=== PATIENT | female | born 1945 | race Caucasian/White ===

== ENCOUNTER 2018-11-08 14:13 | Inpatient (IN) | payer OTHER ==
[~2018-11-08] VITALS: Ht 157.5 cm; Wt 60.8 kg
[2018-11-08] VITALS (13 sets, daily range): BP systolic 118–181; BP diastolic 56–94
[~2018-11-08 14:13] MED LIST: ASA81BEC PO; CALCIUM 600 +1 EAC1 PO; FISH OIL 1,001000 M1 PO; GEMFIBROZIL 60600 MG PO; JINTELI 1 MG-51 EACH; RED YEAST RICE600 M1 PO; ULTRAM 50MG TAB50 MG PO; VITAMIN E400 UNI6 PO
[2018-11-08 14:41] LABS: URINE BILIRUBIN NEGATIVE (Negative); URINE BLOOD TRACE (Negative); URINE CLARITY CLEAR; URINE COLOR YELLOW; URINE GLUCOSE-RANDOM* NEGATIVE (Negative); URINE KETONES TRACE (Negative); URINE LEUKOCYTES NEGATIVE (Negative); URINE NITRITE NEGATIVE (Negative); URINE PROTEIN (DIPSTICK) NEGATIVE (Negative); URINE SPECIFIC GRAVITY 1.015 (1.005-1.035); URINE UROBILINOGEN 0.2 E.U./dl (0.2-1.0)
[2018-11-08 14:54] LABS: ABSOLUTE NEUTROPHILS 5.1 thou/uL (1.4-8.2); BASOPHILS 0.4 % (0.0-2.0); EOSINOPHILS 0.9 % (0.0-3.0); HEMATOCRIT 41.5 % (37.0-47.0); LYMPHOCYTES 14.4 % (24.0-44.0); MCH 30.3 pg (26.0-34.0); MCHC 33.7 g/dL (28.0-37.0); MCV 89.7 fL (80.0-100.0); MONOCYTES 5.2 % (1.0-8.0); PLATELET COUNT 261 thou/uL (150-400); POLYS 79.1 % (36.0-66.0); RBC 4.63 mil/uL (4.20-5.00); RDW 13.2 % (10.5-14.5); WBC 6.4 thou/uL (4.0-11.0)
[2018-11-08 15:06] LABS: CALCIUM 8.8 mg/dL (8.5-10.1); CREATININE 0.7 mg/dL (0.6-1.0); POTASSIUM 3.8 mmol/L (3.5-5.1)
[2018-11-08 15:12] LABS: ALBUMIN 4.2 g/dL (3.4-5.0); TOTAL PROTEIN 7.9 g/dL (6.4-8.2)
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
--- NOTE | 2018-11-08 17:50 | NUR ---
PT ORIOENTED TO ROOM AND UNIT. BED LOW AND LOCKED, SIDE RAILS UPX 3, CALL LIGHT IN REACH. TELE APPLIED. WILL CONTINUE TO ASSESS.
[2018-11-08 22:40] LABS: HEMATOCRIT 36.4 % (37.0-47.0); HEMOGLOBIN 12.3 gm/dL (12.0-15.0)
[2018-11-09] VITALS (12 sets, daily range): BP systolic 123–152; BP diastolic 48–66
--- NOTE | 2018-11-09 04:13 | NUR ---
PATIENT ADMITTED FROM ED DEPARTMENT, ALERT AND ORIENTED X4, PAIN TO ABDOMINAL MILDLY CONTROLLED WITH MEDICATION. ON ROOM AIR. UP WITH STANDBY ASSISTANCE. H&H LABWORK MONITORED CLOSELSY. SINUS RHYTHM ON CLAIMS REPRESENTATIVE. SPOKE WITH DR. LIM ABOUT PATIENT'S PLAN OF CARE. PLAN OF CARE DISCUSSED WITH PATIENT, VERBALIZED UNDERSTANDING. NO SIGNS OF ACUTE DISTRESS NOTED AT THIS TIME. WILL CONTINUE TO MONITOR.
[2018-11-09 05:25] LABS: ALBUMIN 3.4 g/dL (3.4-5.0); CALCIUM 8.6 mg/dL (8.5-10.1); CREATININE 0.6 mg/dL (0.6-1.0); MAGNESIUM 1.8 mg/dL (1.8-2.4); PHOSPHORUS 3.2 mg/dL (2.5-4.9); POTASSIUM 3.9 mmol/L (3.5-5.1)
[2018-11-09 05:44] LABS: HEMATOCRIT 36.3 % (37.0-47.0); MCH 29.9 pg (26.0-34.0); MCHC 33.2 g/dL (28.0-37.0); MCV 90.2 fL (80.0-100.0); RBC 4.02 mil/uL (4.20-5.00); RDW 12.9 % (10.5-14.5); WBC 4.9 thou/uL (4.0-11.0)
--- NOTE | 2018-11-09 11:49 | NUR ---
ASSESSMENTS AND INTERVENTIONS DOCCUMENTED. PATIENT ALERT AND ORIENTED X4. PATIENT RREQUESTING LEFT AC IV BE REMOVED. PATIENT BECAUSE NAUSEATED AND VOMMITED. NURSE CALLED DR LIM TO GET AN ORDER FOR ZOFRAN. ZOFRAN AND SCOPOLAMINE PATCH PERSCRIBED. MEDICATION GIVEN TO PATIENT AND SPRITE OFFERED TO HELP WITH VOMMITING. PATIENT FEELING BETTER AND AT BEDSIDE. PATIENT ASKED TO USE THE STOOL AND BEGAN TO VOMMIT AGAIN. PATIENT RESTED AND TRANSFERED TO 3W. PATIENT HELPED INTO BED AND HOOKED UP TO TELEMETRY MONTIOR AND CHART GIVEN TO NURSE ON 3W.
--- NOTE | 2018-11-09 18:31 | NUR ---
ASSUMED CARE OF PT UPON ARRIVAL FROM ICU AT APPROX 1200. PT ALERT AND ORIENTED, IN NO ACUTE DISTRESS. PAIN IMPROVING. NAUSEA IMPROVING. NOW TOLERATING SOLID FOODS. ANTICIPATING D/C TOMORROW IF LABS STABLE. PT PROGRESSING TOWARD POC GOALS.
[2018-11-10 03:16] VITALS: BP 111/60
--- NOTE | 2018-11-10 04:27 | NUR ---
PT MAKING PROGRESS TOWARDS GOALS. HAS DENIED ANY PAIN EXCEPT MOMENTARILY WITH COUGHING OR A DEEP BREATH. ENCOURAGED TO SPLINT HER ABDOMEN PRIOR TO COUGHING OR TAKING A DEEP BREATH. DENIED NEED FOR TYELNOL AT MIDNIGHT.
[2018-11-10 05:50] LABS: HEMATOCRIT 34.6 % (37.0-47.0); HEMOGLOBIN 11.7 gm/dL (12.0-15.0); MCH 30.5 pg (26.0-34.0); MCHC 33.7 g/dL (28.0-37.0); MCV 90.6 fL (80.0-100.0); RBC 3.82 mil/uL (4.20-5.00); RDW 12.7 % (10.5-14.5); WBC 3.7 thou/uL (4.0-11.0)
[2018-11-10 07:16] VITALS: BP 153/70
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
[2018-11-10] MEDS ORDERED: ACETAMINOPHEN325 M1 PO (12:54)
[2018-11-10 13:10] VITALS: BP 153/70
--- NOTE | 2018-11-10 13:29 | NUR ---
Assumed pt care this am, no signs of distress have been noted. Pt verbalized that pain in noted when she coughes, sneezes or takes a deep breath. Advised the pt to splint a pillow to help decrease the pain when this occurs. VS have been stable, no signs of bleeding have been noted. Seend by Dr. Monaco, axel orders given , instructions given to the pt. IV removed, pt will be going [place] with her mother in law. POC followed.
== END 2018-11-10 14:07 | disposition home or self-care (01) | DRG 814 ==
LOC: ER 14:13 → 3W 16:17 → EROBS 16:17 → ICU 16:17 → 3W 11-09 11:32 → ENTRNSPT 11-10 13:45 → EDTRNSPTSTS 11-10 13:48 → 3W 11-10 14:07
PROVIDERS: Emergency Medicine; ADMIT Surgery
DX: S36.039A Unspecified laceration of spleen, initial encounter (principal); K66.1 Hemoperitoneum; K63.5 Polyp of colon; I10 Essential (primary) hypertension; E78.00 Pure hypercholesterolemia, unspecified; M19.90 Unspecified osteoarthritis, unspecified site; M81.0 Age-related osteoporosis without current pathological fracture; E78.5 Hyperlipidemia, unspecified; Z80.1 Family history of malignant neoplasm of trachea, bronchus and lung; Z79.899 Other long term (current) drug therapy; X58.XXXA Exposure to other specified factors, initial encounter; Y93.89 Activity, other specified; Y92.89 Other specified places as the place of occurrence of the external cause; Y99.8 Other external cause status
CPT/HCPCS: 10078; 10879

== ENCOUNTER → 2018-11-15 | Outpatient (CLI) | payer OTHER ==
[~2018-11-15] MED LIST changes: +ACETAMINOPHEN325 M1 PO
[2018-11-15 12:51] LABS: CREATININE 0.7 mg/dL (0.6-1.0)
== END ==
LOC: CAT 12:13
PROVIDERS: Surgery
DX: S36.039A Unspecified laceration of spleen, initial encounter (principal); J98.11 Atelectasis; M47.816 Spondylosis without myelopathy or radiculopathy, lumbar region; Q67.6 Pectus excavatum; X58.XXXA Exposure to other specified factors, initial encounter; Y93.89 Activity, other specified; Y92.89 Other specified places as the place of occurrence of the external cause; Y99.8 Other external cause status

== ENCOUNTER → 2019-08-08 | Outpatient (CLI) | payer OTHER | LOC: CAT 13:49 | DX: Z13.6 Encounter for screening for cardiovascular disorders (principal); I25.10 Atherosclerotic heart disease of native coronary artery without angina pectoris; E78.00 Pure hypercholesterolemia, unspecified ==

== ENCOUNTER → 2019-08-13 | Outpatient (CLI) | payer OTHER | LOC: SJCVC 10:57 | PROVIDERS: ATTEND Internal Medicine | DX: R94.31 Abnormal electrocardiogram [ECG] [EKG] (principal); I44.7 Left bundle-branch block, unspecified; E78.00 Pure hypercholesterolemia, unspecified; Z79.899 Other long term (current) drug therapy ==

== ENCOUNTER → 2019-08-21 | Outpatient (CLI) | payer OTHER | LOC: SJCVCIMAG 09:55 | PROVIDERS: ATTEND Internal Medicine | DX: I44.7 Left bundle-branch block, unspecified (principal); R06.00 Dyspnea, unspecified; E78.5 Hyperlipidemia, unspecified ==

== ENCOUNTER → 2019-08-23 | Outpatient (CLI) | payer OTHER | LOC: SJCVCIMAG 11:56 | PROVIDERS: ATTEND Internal Medicine | DX: R00.0 Tachycardia, unspecified (principal); E78.5 Hyperlipidemia, unspecified ==

== ENCOUNTER 2019-12-08 14:46 | Emergency (ER) | payer OTHER ==
[~2019-12-08] VITALS: Ht 160 cm; Wt 59.9 kg
[2019-12-08 14:53] VITALS: BP 155/67
[2019-12-08] MEDS ORDERED: GEMFIBROZIL 60600 M1 PO (15:00)
[2019-12-08] MEDS ORDERED: VALTREX1000 MG PO (15:26)
[2019-12-08] MEDS ORDERED: PREDNISONE50 MG PO (15:26)
== END 2019-12-08 16:31 | disposition home or self-care (01) ==
LOC: ER 14:46
DX: B02.9 Zoster without complications (principal); M54.2 Cervicalgia; E78.00 Pure hypercholesterolemia, unspecified; Z98.890 Other specified postprocedural states; M19.90 Unspecified osteoarthritis, unspecified site; Z79.899 Other long term (current) drug therapy

== ENCOUNTER → 2020-04-16 | Outpatient (CLI) | payer OTHER ==
[~2020-04-16] MED LIST changes: +GEMFIBROZIL 60600 M1 PO; +PREDNISONE50 MG PO; +VALTREX1000 MG PO
== END ==
LOC: RAD 11:10
PROVIDERS: ATTEND Family Medicine
DX: M43.17 Spondylolisthesis, lumbosacral region (principal); M48.07 Spinal stenosis, lumbosacral region; M47.817 Spondylosis without myelopathy or radiculopathy, lumbosacral region; M47.816 Spondylosis without myelopathy or radiculopathy, lumbar region

== ENCOUNTER → 2020-11-20 | Outpatient (CLI) | payer OTHER | LOC: RAD 11:43 | PROVIDERS: ATTEND Family Medicine | DX: M54.6 Pain in thoracic spine (principal); G89.29 Other chronic pain; M47.812 Spondylosis without myelopathy or radiculopathy, cervical region ==